=== PATIENT | female | born 1980 | race Caucasian/White ===

== ENCOUNTER 2020-07-26 11:14 | Outpatient (CLI) | payer BC | END 2020-07-26 11:15 | disposition home or self-care (01) | LOC: CSHMAMMO 11:14 | PROVIDERS: ATTEND Specialist | DX: Z12.31 Encounter for screening mammogram for malignant neoplasm of breast (principal) | CPT/HCPCS: 77063; 77067 ==

== ENCOUNTER 2021-03-07 09:54 | Outpatient (CLI) | payer BC | END 2021-03-07 09:55 | disposition home or self-care (01) | LOC: CSHLAB 09:54 | PROVIDERS: ATTEND Obstetrics & Gynecology | DX: Z01.812 Encounter for preprocedural laboratory examination (principal); Z20.822 Contact with and (suspected) exposure to COVID-19 | CPT/HCPCS: 84703; 85027; 86850; 86900; 86901; U0003; U0005 ==

== ENCOUNTER 2021-03-12 10:19 | Day surgery (SDC) | payer BC ==
[2021-03-07 11:43] LABS: Hemoglobin 13.8 g/dL (12.0-15.5); Mean Corpuscular HGB CONC 32.1 g/dL (32.0-36.0); Mean Corpuscular Hemoglobin 28.9 pg (27.0-33.0); Mean Corpuscular Volume 90.1 fl (81.6-98.3); Mean Platelet Volume 10.3 fl (7.4-10.4); Platelet Count 303 10x3/uL (150-450); RBC Distribution Width 12.6 % (11.5-14.5); Red Blood Cell (RBC) Count 4.77 10x6/uL (3.90-5.03); White Blood Cell (WBC) Count 5.7 10x3/uL (3.5-10.5)
[2021-03-07 11:57] LABS: BHCG - Serum Negative (NEGATIVE); Pregs Control Background? CLEAR/WHITE (CLR/WHITE); Pregs Control Bar Appear? YES (CONTROL BAR)
[2021-03-07 21:44] LABS: SARS-CoV-2 PCR by NAA Not Detected (NotDetected)
[2021-03-12] MEDS ORDERED: Lidocaine 1% MPF 2 ML VIAL ONE (10:25)
[2021-03-12] MEDS ORDERED: Gabapentin 300 MG CAP ONE (10:25)
[2021-03-12] MEDS ORDERED: Famotidine/PF 20 mg/2ml Vial ONE (10:26)
[2021-03-12] MEDS ORDERED: CeleCOXIB 100 MG CAP ONE (10:54)
[2021-03-12] MEDS ORDERED: PROPOFOL 40 ML ONE (11:55)
[2021-03-12] MEDS ORDERED: Midazolam HCl 2 mg/2 ml Vial ONE (11:55)
[2021-03-12] MEDS ORDERED: Rocuronium Bromide 10 MG/ML (10ML VIAL) ONE (11:55)
[2021-03-12] MEDS ORDERED: Glycopyrrolate 0.2 MG/ML 5 ML SYRINGE ONE (11:55)
[2021-03-12] MEDS ORDERED: Fentanyl 250 MCG/5 ML VIAL ONE (11:55)
[2021-03-12] MEDS ORDERED: Dexamethasone 20 MG/5 ML VIAL ONE (11:55)
[2021-03-12] MEDS ORDERED: Ketorolac Tromethamine 30 MG/ML VIAL ONE (11:55)
[2021-03-12] MEDS ORDERED: Lidocaine 1% PF 5 ML VIAL ONE (11:55)
[2021-03-12] MEDS ORDERED: Ondansetron PF 4 MG/2 ML Vial ONE ×2 (11:55→15:52)
[2021-03-12] MEDS ORDERED: Bupivacaine PF 0.5% 30 ML VIAL ONE (12:01)
[2021-03-12] MEDS ORDERED: EPINEPHrine 1 MG/ML AMP ONE (12:01)
[2021-03-12] MEDS ORDERED: Fentanyl 100 MCG/2 ML VIAL ONE (14:11)
[2021-03-12] MEDS ORDERED: traMADol HCl 50 MG TAB ONE (15:17)
[2021-03-12] MEDS ORDERED: Metoclopramide HCl 10 MG/2 ML VIAL ONE (17:01)
== END 2021-03-12 17:35 | disposition home or self-care (01) ==
LOC: CSHSDC 10:19
PROVIDERS: ATTEND Obstetrics & Gynecology
PROC: 0UT74ZZ Resection of Bilateral Fallopian Tubes, Percutaneous Endoscopic Approach (ICD-10-PCS; principal; 2021-03-12)
PROC: 0UT94ZZ Resection of Uterus, Percutaneous Endoscopic Approach (ICD-10-PCS; principal; 2021-03-12)
DX: D25.0 Submucous leiomyoma of uterus (principal); N80.0 Endometriosis of uterus; N84.1 Polyp of cervix uteri; N88.8 Other specified noninflammatory disorders of cervix uteri; Z79.3 Long term (current) use of hormonal contraceptives; Z88.1 Allergy status to other antibiotic agents; Z91.018 Allergy to other foods; Z20.822 Contact with and (suspected) exposure to COVID-19
CPT/HCPCS: 36415; 84703; 85027; 86850; 86900; 86901; 88307; C1776; J0171; J0690; J1100; J1885; J2250; J2405; J2704; J2765; J3010; S0020; S0028; U0003; U0005

== ENCOUNTER 2023-04-30 11:49 | Outpatient (CLI) | payer BC | END 2023-04-30 11:50 | disposition home or self-care (01) | LOC: CSHMAMMO 11:49 | PROVIDERS: ATTEND Family Medicine | DX: Z12.31 Encounter for screening mammogram for malignant neoplasm of breast (principal) | CPT/HCPCS: 77063; 77067 ==